=== PATIENT | female | born 1985 | race Caucasian/White ===

== ENCOUNTER → 2016-05-25 | Outpatient (REF) | payer OTHER ==
[~2016-05-25] MED LIST: ACET50TA PO; COLA100C PO; IBUP80TA PO; PREN27TA3 PO
== END ==
LOC: M LAB REF 09:40
PROVIDERS: ATTEND Internal Medicine Nephrology
DX: R80.1 Persistent proteinuria, unspecified (principal)

== ENCOUNTER → 2016-06-06 | Outpatient (REF) | payer OTHER | LOC: M LAB REF 14:02 | PROVIDERS: ATTEND Physician Assistant Medical | DX: Z01.419 Encounter for gynecological examination (general) (routine) without abnormal findings (principal); Z11.51 Encounter for screening for human papillomavirus (HPV) ==